=== PATIENT | male | born 1995 | race Caucasian/White ===

== ENCOUNTER 2021-07-20 17:58 | Emergency (ER) | payer MEDICAID ==
[~2021-07-20] VITALS: Ht 180.3 cm; Wt 80.0 kg
[2021-07-20] MEDS ORDERED: LIDOCAINE HCL/PF 1% 10 MG/ML 5ML VIAL INFIL ONE (19:00)
[2021-07-20] MEDS ORDERED: IBUPROFEN 600MG TABLET PO ONE (19:00)
[2021-07-20] MEDS ORDERED: TETANUS, DIPHTHERIA, PERTUSSIS VAC/PF 0.5ML (>10YR OLD) IM ONE (19:00)
[2021-07-20] MEDS ORDERED: LIDOCAINE HCL/EPINEPHRINE 1%-EPI 1:100,000 20 ML VIAL INFIL ONE (19:00)
[2021-07-20] MEDS ORDERED: ACETAMINOPHEN 325MG TABLET PO ONE (19:00)
[2021-07-20] MEDS ORDERED: BACITRACIN ZINC OINT UDPKT TOP ONE (19:00)
[2021-07-20 21:31] VITALS: BP 125/76
== END 2021-07-20 21:33 | disposition home or self-care (01) ==
LOC: ER 17:58
DX: S51.812A Laceration without foreign body of left forearm, initial encounter (principal); Z91.013 Allergy to seafood; W26.8XXA Contact with other sharp object(s), not elsewhere classified, initial encounter; Y93.89 Activity, other specified; Y92.89 Other specified places as the place of occurrence of the external cause; Y99.8 Other external cause status
CPT/HCPCS: 12002; 73090; 90471; 90715; 99283; J3490; Z7610

== ENCOUNTER 2021-07-23 14:01 | Emergency (ER) | payer MEDICAID ==
[~2021-07-23] VITALS: Ht 180.3 cm; Wt 79.0 kg
[2021-07-23 15:47] VITALS: BP 129/79
== END 2021-07-23 15:48 | disposition home or self-care (01) ==
LOC: ER 14:41
DX: Z48.00 Encounter for change or removal of nonsurgical wound dressing (principal)
CPT/HCPCS: 99281

== ENCOUNTER 2021-08-05 09:30 | Emergency (ER) | payer MEDICAID ==
[~2021-08-05] VITALS: Ht 180.3 cm; Wt 78.0 kg
[2021-08-05 09:34] VITALS: BP 138/81
== END 2021-08-05 10:56 | disposition home or self-care (01) ==
LOC: ER 09:30
DX: Z48.02 Encounter for removal of sutures (principal)
CPT/HCPCS: 99281